=== PATIENT | male | born 1995 | race Caucasian/White ===

== ENCOUNTER → 2021-10-25 | Outpatient (CLI) | payer BC ==
[~2021-10-25] MED LIST: ACETAMINOPHEN; AMOCLA500 PO; AMOX250 PO; CEPH250A PO; CEPH250SUA PO; CODACEE120 PO; DIPH25; FOCALIN; HYDACE5 PO; IBUP600 PO; PERM5TC TOP; PRED10; PRED10 PO; RXHYDACE PO; SUMA25 PO; [UNRECOGNIZED DRUG - OTHER]
[2021-10-26 08:09] LABS: HIV SCREEN 4TH GENERATION WRFX Non Reactive (Non Reactive)
[2021-10-26 09:09] LABS: HBSAG SCREEN Negative (Negative); HEP A AB, IGM Negative (Negative); HEP B CORE AB, IGM Negative (Negative); HEP C VIRUS AB <0.1 (0.0-0.9)
[2021-10-27 03:10] LABS: CHLAMYDIA TRACHOMATIS, NAA Negative (Negative)
== END ==
LOC: LAB 16:10 → LAB SHORT 16:10
PROVIDERS: Physician Assistant
DX: N34.1 Nonspecific urethritis (principal)
CPT/HCPCS: 80074; 86592; 87086; 87389; 87491; 87591

== ENCOUNTER 2023-05-04 14:23 | Emergency (ER) | payer OTHER, BC ==
[~2023-05-04] VITALS: Ht 180.3 cm; Wt 83.9 kg
[2023-05-04] MEDS ORDERED: OMEP20ER PO (15:32)
[2023-05-04 17:45] VITALS: BP 128/83
== END 2023-05-04 17:45 | disposition home or self-care (01) ==
LOC: ER 14:23
DX: S01.01XA Laceration without foreign body of scalp, initial encounter (principal); W01.10XA Fall on same level from slipping, tripping and stumbling with subsequent striking against unspecified object, initial encounter; Z23 Encounter for immunization; Z79.899 Other long term (current) drug therapy
CPT/HCPCS: 90714

== ENCOUNTER 2023-07-27 20:19 | Emergency (ER) | payer BC ==
[~2023-07-27] VITALS: Ht 177.8 cm; Wt 93.0 kg
[~2023-07-27 20:19] MED LIST changes: +OMEP20ER PO
[2023-07-27 20:42] VITALS: BP 110/64
== END 2023-07-27 23:59 | disposition home or self-care (01) ==
LOC: ER 20:19
DX: S61.411A Laceration without foreign body of right hand, initial encounter (principal); W27.8XXA Contact with other nonpowered hand tool, initial encounter
CPT/HCPCS: 12001; 99282-25